=== PATIENT | male | born 1985 | race African-American/Black ===

== ENCOUNTER 2016-04-03 16:07 | Observation (INO) | payer SELFPAY ==
[~2016-04-03] VITALS: Ht 180.3 cm; Wt 80.0 kg
[~2016-04-03 16:07] MED LIST: BACT800T5 PO; Divalproex Sodium PO
[2016-04-03 16:11] VITALS: BP 134/63; PULSE 62; RESP 20; TEMP 97.9; O2SAT 98
--- NOTE | 2016-04-03 17:05 | PD ---
HPI Chief Complaint: Musculoskeletal Complaint Time Seen by Provider: 17:05 Travel History International Travel<30 days: No Contact w/Intl Traveler<30days: No Traveled to known affect area: No History of Present Illness HPI 30-year-old male with history of sudden cardiac arrest 2 years ago with pacemaker placement, presents to the Emergency department for evaluation of left arm pain and slight swelling noted over the last 2 days. Patient recalls no trauma. He has had no chest pain or tightness. No difficulty breathing. Denies any alterations in sensation or limitations range of motion. No history DVT or PE. Smoked tobacco cigarettes and consumes alcohol occasionally. He does not have a primary care provider. He has no other symptoms to report. PFSH Past Medical History Arthritis: No Asthma: No Heart Rhythm Problems: No Cancer: No Cardiovascular Problems: Yes High Cholesterol: No Chest Pain: No Congestive Heart Failure: No COPD: No Cerebrovascular Accident: No Diminished Hearing: No Endocrine: No GERD: No Genitourinary: No Hiatal Hernia: No Immune Disorder: No Implanted Vascular Access Dvce: Yes (DEF) Musculoskeletal: No Neurologic: No Reproductive: No Respiratory: No Migraines: No Seizures: No Sleep Apnea: No Ulcer: No Tetanus Vaccination: > 5 Years Past Surgical History Abdominal Surgery: No Cardiac Surgery: No Ear Surgery: No Endocrine Surgery: No Gynecologic Surgery: No Oral Surgery: No Thoracic Surgery: No Social History Alcohol Use: Yes (WEEKLY) Tobacco Use: Yes (OCC) Substance Use: Yes (cannibis) Allergies-Medications (Allergen,Severity, Reaction): Coded Allergies: No Known Allergies (Verified , 04/03/16) Reported Meds & Prescriptions Reported Meds & Active Scripts Active No Active Prescriptions or Reported Medications Review of Systems Except as stated in HPI: all other systems reviewed are Neg Physical Exam Narrative GENERAL: Well-nourished male patient, in no acute distress SKIN: Warm and dry. HEAD: Atraumatic. Normocephalic. EYES: Pupils equal and round. No scleral icterus. No injection or drainage. ENT: No nasal bleeding or discharge. Mucous membranes pink and moist. NECK: Trachea midline. No JVD. CARDIOVASCULAR: Regular rate and rhythm. No murmur appreciated. RESPIRATORY: No accessory muscle use. Clear to auscultation. Breath sounds equal bilaterally. GASTROINTESTINAL: Abdomen soft, non-tender, nondistended. Hepatic and splenic margins not palpable. MUSCULOSKELETAL: No obvious deformities. No clubbing. No cyanosis. 1+ edema of the proximal left upper extremity. Distal pulses are palpable. Cap refill is within normal limits. 5+ strength equal bilateral extremities. NEUROLOGICAL: Awake and alert. No obvious cranial nerve deficits. Motor grossly within normal limits. Normal speech. PSYCHIATRIC: Appropriate mood and affect; insight and judgment normal. Data Data Last Documented VS Vital Signs Date Time Temp Pulse Resp B/P Pulse Ox O2 Delivery O2 Flow Rate FiO2 04/03/16 16:11 97.9 62 20 134/63 98 Room Air Orders Us Arm Venous Doppler (04/03/16 ) Iv Access Insert/Monitor (04/03/16 19:41) Complete Blood Count With Diff (04/03/16 19:41) Basic Metabolic Panel (Bmp) (04/03/16 19:41) Coag Profile (04/03/16 19:41) Labs Laboratory Tests Test 04/03/16 19:40 White Blood Count 5.6 TH/MM3 Red Blood Count 4.74 MIL/MM3 Hemoglobin 13.4 GM/DL Hematocrit 40.1 % Mean Corpuscular Volume 84.7 FL Mean Corpuscular Hemoglobin 28.3 PG Mean Corpuscular Hemoglobin 33.4 % Concent Red Cell Distribution Width 14.1 % Platelet Count 145 TH/MM3 Mean Platelet Volume 9.6 FL Neutrophils (%) (Auto) 58.7 % Lymphocytes (%) (Auto) 30.7 % Monocytes (%) (Auto) 7.1 % Eosinophils (%) (Auto) 2.8 % Basophils (%) (Auto) 0.7 % Neutrophils # (Auto) 3.3 TH/MM3 Lymphocytes # (Auto) 1.7 TH/MM3 Monocytes # (Auto) 0.4 TH/MM3 Eosinophils # (Auto) 0.2 TH/MM3 Basophils # (Auto) 0.0 TH/MM3 CBC Comment DIFF FINAL Differential Comment Prothrombin Time 11.7 SEC Prothromb Time International 1.1 RATIO Ratio Activated Partial 28.5 SEC Thromboplast Time Sodium Level 139 MEQ/L Potassium Level 4.3 MEQ/L Chloride Level 102 MEQ/L Carbon Dioxide Level 31.7 MEQ/L Anion Gap 5 MEQ/L Blood Urea Nitrogen 15 MG/DL Creatinine 1.33 MG/DL Estimat Glomerular Filtration 76 ML/MIN Rate Random Glucose 74 MG/DL Calcium Level 8.9 MG/DL MDM Medical Decision Making Medical Screen Exam Complete: Yes Emergency Medical Condition: Yes Medical Record Reviewed: Yes Differential Diagnosis DVT versus cellulitis versus lymphedema Narrative Course 30-year-old male presents to the emergency department for evaluation of left upper extremity swelling over the last 2 days. Patient does have slight edema of the proximal left upper extremity however distal pulses are palpable, the extremity is warm, patient has no limitations in range of motion. Ultrasound shows partial occlusion of the subclavian vein and full occlusion of the brachial vein. Lab work is sent for evaluation. Once it is resulted I will contact [facility] for admission as the patient has no primary care for follow-up. [address] Hearn. She requests I check with case management in regards to outpt Xarelto and possible Discharge pt home. 2129 I spoke with Maritza in Case management. She does have xarelto cards but states getting the pt set up to follow up in the outpt clinic needs to be done through financial which is not available at this time and in the best interest of the pt, he will be admitted. Diagnosis Primary Impression: Arm DVT (deep venous thromboembolism), acute Qualified Code: I82.622 - Arm DVT (deep venous thromboembolism), acute, left Admitting Information Admitting Physician Requests: Admit Scripts No Active Prescriptions or Reported Meds Condition: Wendy Cuenca Apr 03, 2016 17:05
[2016-04-03 19:15] VITALS: BP 148/70; PULSE 78; RESP 16; O2SAT 99
--- NOTE | 2016-04-03 19:29 | RADRPT ---
EXAM DATE/TIME: 04/03/2016 18:47 [facility] COMPARISON: No previous studies available for comparison. INDICATIONS : Left upper extremity swelling. MEDICAL HISTORY : Head trauma. Substance use. Left arm swelling. SURGICAL HISTORY : None. ENCOUNTER: Initial ACUITY: 2 day PAIN SCORE: 3/10 LOCATION: Left arm. FINDINGS: Nonocclusive thrombus seen in the left subclavian vein. There is occlusive thrombus in the proximal a nd mid portions of the left brachial vein. CONCLUSION: Left upper extremity DVT involving the subclavian vein and brachial vein. Maykel Langston MD on April 03, 2016 at 19:27 Board Certified Radiologist. This report was verified electronically.
[2016-04-03 20:10] LABS: AUTOMATED NEUTROPHIL # 3.3 TH/MM3 (1.8-7.7); BASOPHIL % 0.7 % (0.0-2.0); EOSINOPHIL # 0.2 TH/MM3 (0-0.4); EOSINOPHIL % 2.8 % (0.0-4.0); HEMATOCRIT 40.1 % (39.0-51.0); HEMO FLAGS DIFF FINAL; LYMPH % 30.7 % (9.0-44.0); LYMPHOCYTE # 1.7 TH/MM3 (1.0-4.8); MEAN CELL VOLUME 84.7 FL (80.0-100.0); MEAN CORPUSCULAR HEMOGLOBIN 28.3 PG (27.0-34.0); MEAN CORPUSCULAR HGB CONC 33.4 % (32.0-36.0); MONO % 7.1 % (0.0-8.0); NEUT % 58.7 % (16.0-70.0); PLATELET COUNT 145 TH/MM3 (150-450); RED BLOOD COUNT 4.74 MIL/MM3 (4.50-5.90); RED CELL DISTRIBUTION WIDTH 14.1 % (11.6-17.2); WHITE BLOOD COUNT 5.6 TH/MM3 (4.0-11.0)
[2016-04-03 20:22] LABS: APTT (PATIENT) 28.5 SEC (24.3-30.1); INTERNATIONAL NORMALIZED RATIO 1.1 RATIO; PROTHROMBIN TIME - PATIENT 11.7 SEC (9.8-11.6)
[2016-04-03 20:56] LABS: BICARBONATE 31.7 MEQ/L (21.0-32.0); POTASSIUM 4.3 MEQ/L (3.5-5.1)
[2016-04-03] MEDS ORDERED: SODIUM CHLORIDE 0.9% FLUSH 5 ML FLUSH FLUSH PRN (21:30)
[2016-04-03] MEDS ORDERED: NALOXONE HCL 0.4 MG/ML AMP IV PRN (21:30)
[2016-04-03] MEDS: ENOXAPARIN SODIUM 80 MG/0.8 ML SYRINGE SQ SCH (22:06)
[2016-04-03 23:12] VITALS: BP 149/72; PULSE 77; RESP 16; O2SAT 98
[2016-04-04] VITALS (7 sets, daily range): BP systolic 123–151; BP diastolic 56–78; PULSE 51–66; RESP 18–20; TEMP 97.7–98.7; O2SAT 99–100
--- NOTE | 2016-04-04 01:17 | HHI.HP ---
[facility] No Primary Care Physician Admission Diagnosis Occlusive L brachial DVT; partial occlusive L subclavian DVT Diagnoses: Chief Complaint: Left arm swelling Travel History International Travel<30 Days: No Contact w/Intl Traveler <30 Da: No Traveled to Known Affected Are: No History of Present Illness History from patient ER physician communication, and review of medical records. Patient reported that he came to the hospital because he noted his left upper extremity to be swelling when he woke up on Sunday. He thought that on Sunday he might have slept on that left upper extremity. However the swelling got progressively worse over the weekend and therefore decided to come to hospital. Patient denies any chest pains. Denies any pleuritic discomfort. Denies any dizziness/palpitations/near-syncopal episodes. Patient reports all prior history of out of hospital cardiac arrest secondary to ventricular fibrillation for which he had AICD placed in 2013. Records from 2014 hospitalization at our hospital was reviewed. Patient states he is not on any medications at present. He does not have a primary care doctor and does not follow up with anyone. He denies being on any steroids. Denies any fracture or injury to this left upper extremities. Denies any prior history of DVTs or PEs. Denies any family history of any blood disorders. Denies any recent travels. Review of Systems Constitutional: DENIES: Diaphoretic episodes, Fatigue, Fever, Weight gain, Weight loss, Chills, Dizziness, Change in appetite Respiratory: DENIES: Apneas, Cough, Wheezing, Hemoptysis, Sputum production, Shortness of breath Cardiovascular: DENIES: Chest pain, Palpitations, Syncope, Dyspnea on Exertion , PND, Lower Extremity Edema, Orthopnea, Claudication Gastrointestinal: DENIES: Abdominal pain, Black stools, Bloody stools, Constipation, Diarrhea, Nausea, Vomiting Genitourinary: DENIES: Urinary frequency, Urinary incontinence, Urgency, Hematuria, Dysuria Musculoskeletal: COMPLAINS OF: Stiffness, Joint Swelling Neurologic: DENIES: Abnormal gait, Headache, Localized weakness, Paresthesias, Seizures, Tremor Past Family Social History Past Medical History History of cardiac arrest secondary to ventricular fibrillation in 2013 Past Surgical History Status post AICD placement Reported Medications None Allergies: Coded Allergies: No Known Allergies (Verified , 04/03/16) Family History denies any family history of any medical conditions. Social History Denies smoking/alcohol abuse/drug abuse. Physical Exam Vital Signs Vital Signs Date Time Temp Pulse Resp B/P Pulse Ox O2 Delivery O2 Flow Rate FiO2 04/04/16 00:40 66 04/04/16 00:35 97.7 56 20 151/70 99 04/03/16 23:12 77 16 149/72 98 Room Air 04/03/16 19:15 78 16 148/70 99 Room Air 04/03/16 16:11 97.9 62 20 134/63 98 Room Air Physical Exam GENERAL: This is a well-nourished, well-developed patient, in no apparent distress. SKIN: No rashes, ecchymoses or lesions. Cool and dry. HEAD: Atraumatic. Normocephalic. No temporal or scalp tenderness. EYES: No scleral icterus. No injection or drainage. ENT: Nose without bleeding, purulent drainage or septal hematoma. Airway patent. NECK: Trachea midline. No JVD CARDIOVASCULAR: Regular rate and rhythm without murmurs, gallops, or rubs. RESPIRATORY: Clear to auscultation. Breath sounds equal bilaterally. No wheezes , rales, or rhonchi. GASTROINTESTINAL: Abdomen soft, non-tender, nondistended. No guarding. MUSCULOSKELETAL: Extremities without clubbing, cyanosis, or edema. No calf tenderness. Left upper extremity is significantly bigger than the right. Good radial pulses. No evidence of compartment syndrome. NEUROLOGICAL: Awake and alert. Motor and sensory grossly within normal limits. Normal speech. Laboratory Laboratory Tests Test 04/03/16 19:40 White Blood Count 5.6 Red Blood Count 4.74 Hemoglobin 13.4 Hematocrit 40.1 Mean Corpuscular Volume 84.7 Mean Corpuscular Hemoglobin 28.3 Mean Corpuscular Hemoglobin 33.4 Concent Red Cell Distribution Width 14.1 Platelet Count 145 Mean Platelet Volume 9.6 Neutrophils (%) (Auto) 58.7 Lymphocytes (%) (Auto) 30.7 Monocytes (%) (Auto) 7.1 Eosinophils (%) (Auto) 2.8 Basophils (%) (Auto) 0.7 Neutrophils # (Auto) 3.3 Lymphocytes # (Auto) 1.7 Monocytes # (Auto) 0.4 Eosinophils # (Auto) 0.2 Basophils # (Auto) 0.0 CBC Comment DIFF FINAL Differential Comment Prothrombin Time 11.7 Prothromb Time International 1.1 Ratio Activated Partial 28.5 Thromboplast Time Sodium Level 139 Potassium Level 4.3 Chloride Level 102 Carbon Dioxide Level 31.7 Anion Gap 5 Blood Urea Nitrogen 15 Creatinine 1.33 Estimat Glomerular Filtration 76 Rate Random Glucose 74 Calcium Level 8.9 Result Diagram: 04/03/16193904/03/161939 Imaging Last 48 hours Impressions Upper Extremity Ultrasound 04/03/16 0000 Signed Impressions: Service Date/Time: Sunday, April 03, 2016 18:47 - CONCLUSION: Left upper extremity DVT involving the subclavian vein and brachial vein. Maykel Langston MD Assessment and Plan Problem List: (1) Arm DVT (deep venous thromboembolism), acute ICD Code: I82.629 Status: Acute (2) Renal insufficiency ICD Code: N28.9 Status: Acute Assessment and Plan Impression: Left upper extremity DVT Prior history of out of hospital cardiac arrest secondary to ventricular fibrillationstatus post AICD in 2013 Acute renal insufficiencylikely due to dehydration. We'll check CPK to rule out rhabdo. Plan: Lovenox therapeutic dose. Ultrasound of left upper extremity personally reviewed. Discussed with patient at length regarding anticoagulation choices. Unfortunately, patient does not have a primary care doctor and does not have insurance. We would therefore have to consult case management and finally his options for anticoagulation since a pretty much does not have much contraindications to any of these anticoagulants. Would also consult hematology for hypercoagulable workup. Start patient on IV fluids normal saline at 100 cc per hour. We'll repeat renal function. Check CPK to rule out rhabdo. Discussed Condition With Patient, ER GASOLINE ATTENDANT Problem Qualifiers (1) Arm DVT (deep venous thromboembolism), acute: Qualified Code: I82.622 - Arm DVT (deep venous thromboembolism), acute, left Pal Hearn MD Apr 04, 2016 01:17
[2016-04-04 04:34] LABS: BICARBONATE 31.4 MEQ/L (21.0-32.0); POTASSIUM 4.2 MEQ/L (3.5-5.1)
[2016-04-04] MEDS ORDERED: SODIUM CHLOR 0.9% 1000 ML INJ 1,000 ML IV SCH ×2 (07:15→08:30)
[2016-04-04] MEDS ORDERED: SODIUM CHLORIDE 0.9% FLUSH 5 ML FLUSH FLUSH SCH (09:00)
[2016-04-04 09:46] LABS: CKMB 1.2 NG/ML (0.5-3.6)
[2016-04-04] MEDS ORDERED: DO NOT ADM ANY ANTICOAGULANT DRUGS XX PRN (10:00)
[2016-04-04] MEDS: ENOXAPARIN SODIUM 80 MG/0.8 ML SYRINGE SQ SCH (10:05)
--- NOTE | 2016-04-04 10:59 | HHI.PR ---
Subjective Remarks Follow-up for left upper extremity DVT. The patient had a single lead pacemaker placed in 2013. Has been having left upper extremity swelling since Sunday. No history of clotting in the past. No family history of clots. Has not been on a blood thinner before. No complaints at this time. Objective Vitals Vital Signs Date Time Temp Pulse Resp B/P Pulse Ox O2 Delivery O2 Flow Rate FiO2 04/04/16 08:00 97.9 60 18 123/78 100 04/04/16 04:17 98.1 58 20 135/69 99 04/04/16 01:31 66 04/04/16 00:40 66 04/04/16 00:35 97.7 56 20 151/70 99 04/03/16 23:12 77 16 149/72 98 Room Air 04/03/16 19:15 78 16 148/70 99 Room Air 04/03/16 16:11 97.9 62 20 134/63 98 Room Air Result Diagram: 04/03/16 1940 04/04/16 0335 Imaging Last Impressions Upper Extremity Ultrasound 04/03/16 0000 Signed Impressions: Service Date/Time: Sunday, April 03, 2016 18:47 - CONCLUSION: Left upper extremity DVT involving the subclavian vein and brachial vein. Maykel Langston MD Objective Remarks GENERAL: Well-developed well-nourished. In no acute distress. SKIN: Warm and dry. No lesions noted. HEENT: Normocephalic. Pupils equal and round. Mucous membranes pink and moist. CARDIOVASCULAR: Regular rate and rhythm. No murmur appreciated. RESPIRATORY: No accessory muscle use. Clear to auscultation. Breath sounds equal bilaterally. GASTROINTESTINAL: Abdomen soft, non-tender, nondistended. Bowel sounds x4. MUSCULOSKELETAL: Left upper extremity swelling. No clubbing or cyanosis. No edema. NEUROLOGICAL: Awake and alert. No focal neurological deficits. Moves upper and lower extremities spontaneously. Normal speech. PSYCHIATRIC: Appropriate mood and affect; insight and judgment normal. A/P Problem List: (1) Arm DVT (deep venous thromboembolism), acute ICD Code: I82.629 Status: Acute (2) Renal insufficiency ICD Code: N28.9 Status: Acute Assessment and Plan 30-year-old male with past mental history of V. fib cardiac arrest status post AICD placement in 2013 who presented with left upper extremity swelling Left upper extremity nonocclusive DVT: Seen on ultrasound. Likely provoked secondary to pacemaker lead. Will likely need to be on lifelong anticoagulation. Discussed with the patient concerning risks and benefits of full anticoagulation, patient agreeable. Also discussed warfarin therapy with Lovenox bridging versus NOAC, patient would prefer NOAC. Discussed with hematology, Dr. Chamberlain, okay with Eliquis if it can be arranged, otherwise start on Coumadin. Case management consulted for assistance with obtaining full anticoagulation and outpatient follow-up for monitoring. Continue full dose Lovenox for now, but anticipate starting patient on Eliquis. Acute kidney injury: Creatinine 1.33 and 1.58, previously 1.1 on 11/14/13. IVF and follow-up BMP. CPK mildly elevated at 341, repeat to ensure no uptrend. Written by Guy Thorne, acting as scribe for Dr. Eduardo on 04/04/16 at 10:58. Discharge Planning Likely DC later today on NOAC after outpatient follow-up can be arranged by case management. 1430 Labs improved. D/W CM, community clinic follow up arranged and Eliquis is covered at outpatient pharmacy. DC home in stable condition. Attending Statement The documentation accurately reflects the work performed [id number] by me, Dr. Eduardo on 04/04/16 at 10:58. Problem Qualifiers (1) Arm DVT (deep venous thromboembolism), acute: Qualified Code: I82.622 - Arm DVT (deep venous thromboembolism), acute, left Guy Thorne Apr 04, 2016 10:59 Asim Eduardo MD Apr 13, 2016 07:30
[2016-04-04] MEDS ORDERED: SODIUM CHLOR 0.9% 1000 ML INJ 1,000 ML IV ONE (11:00)
[2016-04-04 13:33] LABS: BICARBONATE 28.6 MEQ/L (21.0-32.0)
[2016-04-04] MEDS ORDERED: APIX5TAB PO (14:34)
[2016-04-04] MEDS ORDERED: WARFARIN SOD 7.5 MG TAB PO SCH (16:00)
[2016-04-04] MEDS ORDERED: APIXABAN 5 MG TABLET PO SCH (21:00)
--- NOTE | 2016-04-04 21:49 | MB ---
cc: KUMAR RUFFIN MD, ABDUL J. M.D. DATE OF CONSULTATION: 04/04/2016 REFERRING PHYSICIAN: Dr. Ruffin REASON FOR CONSULTATION: Left upper extremity DVT. HISTORY OF PRESENT ILLNESS: This is a 30 year-old -Citizen Of [place] male. He has a significant history of cardiac arrest secondary to ventricular fibrillation in 2013. He had an ICD placement. The patient was in his usual state of health until three days ago he noticed swelling of the left upper extremity. He waited and noticed that the swelling was getting worse so he decided to come to the emergency room. The patient had an ultrasound that showed DVT of the left upper extremity. The patient was started on Lovenox. I have been asked to see the patient for further evaluation. The patient denies any previous history of any DVT or thromboembolic disease. The patient does not have any family history of thromboembolic disease either. He denies any trauma. He denies shooting drugs in the left arm. The rest of the review of systems is negative. PAST MEDICAL HISTORY: Cardiac arrest secondary to ventricular fibrillation in 2013. PAST SURGICAL HISTORY: AICD placement. ALLERGIES: NONE. MEDICATIONS: None. FAMILY HISTORY: Noncontributory. SOCIAL HISTORY: He does not smoke cigarettes, does not drink alcohol. PHYSICAL EXAMINATION: The patient is a well-developed, well-nourished -Citizen Of [place] male in no apparent distress. VITAL SIGNS: Temperature 97.9, heart rate 60, blood pressure 123/78. HEENT: PERRLA, EOMI. Nonicteric. No oral lesions are noted. NECK: Supple. There is no cervical, supraclavicular, axillary lymphadenopathy noted. Lungs are clear. No wheezing, rhonchi or rales. Heart is regular rate and rhythm. Abdomen is soft, nontender. No hepatosplenomegaly. Extremities: Swelling of the left upper extremity noted. ASSESSMENT 1. Unprovoked left upper extremity DVT probably related to the AICD placement. 2. History of cardiac arrest secondary to ventricular fibrillation. Status post AICD placement. PLAN I have reviewed the available records. I have discussed with the patient regarding the unprovoked DVT of the left upper extremity. He does not have any previous personal or family history of thromboembolic disease. The patient was started on Lovenox. We discussed about oral anticoagulant. The choices are Coumadin or new oral novel agent such as Eliquis or Xarelto. The patient does not have any insurance. My recommendation is to start him on Coumadin 7.5 mg. We also discussed about the novel oral agents such as Eliquis and Xarelto. I have discussed with the patient's nurse to get the porter sample case to get involved in his care. If the Eliquis can be arranged, then the patient could be placed on that and he could be discharged. The patient could be followed up as an outpatient. Thank you for asking my opinion. MD FEDERICA Mckeon/LUIS MANUEL /7:47 PM /9:37 PM [facility]
== END 2016-04-04 16:03 | disposition home or self-care (01) ==
LOC: NEPB 16:07 → INTOOBSV 21:27 → NEDA 21:27 → NEPFCDU 04-04 00:15
PROVIDERS: ADMIT Internal Medicine; ATTEND Internal Medicine
DX: I82.B12 Acute embolism and thrombosis of left subclavian vein (principal); N28.9 Disorder of kidney and ureter, unspecified; Z72.0 Tobacco use; Z95.0 Presence of cardiac pacemaker; Z86.74 Personal history of sudden cardiac arrest
CPT/HCPCS: 80048; 82550; 82552; 85025; 85610; 85730; 93971; 99285; G0378; J1650; J7030

== ENCOUNTER 2017-08-01 08:40 | Emergency (ER) | payer SELFPAY ==
[~2017-08-01] VITALS: Ht 180.3 cm; Wt 78.0 kg
[~2017-08-01 08:40] MED LIST changes: +APIX5TAB PO; -BACT800T5 PO; -Divalproex Sodium PO
[2017-08-01 08:43] VITALS: BP 142/63; PULSE 58; RESP 18; TEMP 97.8; O2SAT 100
[2017-08-01] MEDS ORDERED: IBUPROFEN 600 MG TAB PO ONE (09:00)
[2017-08-01] MEDS ORDERED: CYCLOBENZAPRINE HCL 10 MG TAB PO ONE (09:00)
--- NOTE | 2017-08-01 09:12 | PD ---
HPI Chief Complaint: Back/ Neck Pain or Injury Time Seen by Provider: 08:54 Travel History International Travel<30 days: No Contact w/Intl Traveler<30days: No Traveled to known affect area: No History of Present Illness HPI 31-year-old male presents to the ED for evaluation of 7/10 cramping low back pain. Onset this morning. Patient denies fevers, chills, nausea, vomiting, dysuria, hematuria, injury to the area, radiation, saddle anesthesia, incontinence. 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 He took 200 mg of ibuprofen with no improvement of symptoms. PFSH Past Medical History Arthritis: No Asthma: No Heart Rhythm Problems: No Cancer: No Cardiovascular Problems: Yes (Sudden cardiac arrest 2013) High Cholesterol: No Chemotherapy: No Chest Pain: No Congestive Heart Failure: No COPD: No Cerebrovascular Accident: No Diminished Hearing: No Endocrine: No GERD: No Genitourinary: No Hiatal Hernia: No Immune Disorder: No Implanted Vascular Access Dvce: Yes (DEF) Musculoskeletal: No Neurologic: No Psychiatric: No Reproductive: No Respiratory: No Migraines: No Radiation Therapy: No Seizures: No Sleep Apnea: No Ulcer: No Tetanus Vaccination: Unknown Past Surgical History Abdominal Surgery: No Body Medical Devices: AICD Pacemaker Cardiac Surgery: No Ear Surgery: No Endocrine Surgery: No Gynecologic Surgery: No Oral Surgery: No Thoracic Surgery: No Other Surgery: Yes (AICD Pacemaker.) Social History Alcohol Use: Yes (WEEKLY) Tobacco Use: No (OCC) Substance Use: No Allergies-Medications (Allergen,Severity, Reaction): Coded Allergies: No Known Allergies (Verified Adverse Reaction, Unknown, 08/01/17) Reported Meds & Prescriptions Reported Meds & Active Scripts Active Flexeril (Cyclobenzaprine HCl) 10 Mg Tab 10 Mg PO TID Ibuprofen 600 Mg Tab 600 Mg PO Q8H PRN Review of Systems Except as stated in HPI: all other systems reviewed are Neg Physical Exam Narrative GENERAL: Well-nourished, well-developed -[place] male in no acute distress. SKIN: Focused skin assessment warm/dry. HEAD: Normocephalic. EYES: No scleral icterus. No injection or drainage. NECK: Supple, trachea midline. No JVD or lymphadenopathy. CARDIOVASCULAR: Regular rate and rhythm without murmurs, gallops, or rubs. RESPIRATORY: Breath sounds equal bilaterally. No accessory muscle use. GASTROINTESTINAL: Abdomen soft, non-tender, nondistended. MUSCULOSKELETAL: No cyanosis, or edema. 5/5 strength of dorsiflexion, plantarflexion, knee and hip flexion bilaterally. Patient noted to walk with a normal gait. BACK: No obvious deformity. No CVA tenderness. No midline tenderness. Palpable spasm and positive tenderness to palpation of the paraspinal musculature in the lumbar area. Straight leg raise negative bilaterally. Data Data Last Documented VS Vital Signs Date Time Temp Pulse Resp B/P (MAP) Pulse Ox O2 Delivery O2 Flow Rate FiO2 08/01/17 08:43 97.8 58 18 142/63 (89) 100 Orders Orders Ibuprofen (Motrin) (08/01/17 09:00) Cyclobenzaprine (Flexeril) (08/01/17 09:00) Ed Discharge Order (08/01/17 09:13) [facility] Medical Decision Making Medical Screen Exam Complete: Yes Emergency Medical Condition: Yes Differential Diagnosis Musculoskeletal pain versus muscle strain versus muscle spasm versus other Narrative Course 31-year-old male presents to the ED for evaluation of 7/10 cramping low back pain. Onset this morning. 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 He took 200 mg of ibuprofen with no improvement of symptoms. No red flag symptoms. Vitals reviewed. On exam the patient has palpable spasm and tenderness to palpation of the paraspinal musculature in the lumbar area. Exam is otherwise unremarkable. He is provided a short course of ibuprofen and Flexeril. First doses were administered in the ED. He requested and received a note for work. He is instructed to return to normal, gentle activity as tolerated, follow with the primary care. He is stable and discharged home. Diagnosis Primary Impression: Musculoskeletal back pain Referrals: Primary Care Physician Patient Instructions: Acute Low Back Pain (ED), General Instructions Departure Forms: Tests/Procedures, Work Release Enter return to work date: August 03, 2017 Additional Instructions: Rest, hydrate. Resume normal, gentle activities as tolerated. No strenuous physical activities for the next few days Take anti-inflammatories and muscle relaxants as prescribed. Do not drive while taking muscle relaxants as they may cause drowsiness. Applying ice or heat to areas with sore muscles may help to improve your pains. Do not apply ice/ heat for longer than 20 m/h. Follow-up with your primary care provider. Return to the ED for any urgent or emergent medical condition. Med/Other Pt SpecificInfo: Prescription(s) given Scripts Cyclobenzaprine (Flexeril) 10 Mg Tab 10 MG PO TID for Muscle Spasm, #15 TAB 0 Refills Prov: Clint Caba MD 08/01/17 Ibuprofen (Ibuprofen) 600 Mg Tab 600 MG PO Q8H Y for PAIN, #15 TAB 0 Refills Prov: Clint Caba MD 08/01/17 Disposition: 01 DISCHARGE HOME Condition: Stable Daniella Wilson August 01, 2017 09:12
[2017-08-01] MEDS ORDERED: CYCL10TA PO (09:13)
[2017-08-01] MEDS ORDERED: IBUP-232 PO (09:13)
== END 2017-08-01 09:46 | disposition home or self-care (01) ==
LOC: NEPD 08:40
DX: M54.5 Low back pain (principal); Z95.810 Presence of automatic (implantable) cardiac defibrillator
CPT/HCPCS: 99283